=== PATIENT | male | born 1970 | race Caucasian/White ===

== ENCOUNTER → 2017-02-22 | Outpatient (CLI) | payer BC ==
--- NOTE | 2017-02-22 20:33 | CONS ---
DATE OF CONSULTATION: 02/22/2017 REASON FOR CONSULTATION: Sleep apnea. This is a 46-year-old male patient coming in today accompanied by his due to concerns of sleep apnea. The tells me the patient snores loud, stops breathing on multiple occasions. He has been having very much sleepiness and fatigue during the day. He has worked at the [employer] in [place] and he commutes between the [facility] and [place]. Sometimes on his way back, he gets tired and he cannot continue, so he pulls over and falls asleep. He goes to bed around 10:00 p.m., wakes up at 4:00 a.m. in the morning. It takes him a few minutes to fall sleep. He seems quite affected by sleepiness. This problem has been going on for quite some time. No recent weight gain or weight loss. No history of any motor vehicle accident because of feeling sleepy or tired. No restlessness in the lower extremities. He has ticks for which he takes clonazepam on a p.r.n. basis. PAST MEDICAL HISTORY: 1. Ticks. 2. Hypertension. 3. Hyperlipidemia. 4. Renal cell carcinoma with a previous nephrectomy. 5. Transient ischemic attack. Surgical history includes a left radical nephrectomy, lithotripsy and vasectomy. ALLERGIES: PHENOTHIAZINE. Outpatient medication list includes: 1. Clonazepam 0.5 daily. 2. Dicyclomine 20 mg p.o. daily. 3. Amlodipine 5 mg p.o. daily. 4. Lipitor 20 mg p.o. daily. SOCIAL HISTORY: Positive smoker, no alcoholism. No alcohol or history of IV drugs. FAMILY HISTORY: No history of any obstructive sleep apnea. REVIEW OF SYSTEMS: Twelve-point review of systems was done. The patient is a nose breather. Known to have A. fib, no history of heart failure. No sleepwalking or sleeptalking. No other parasomnias noted. He wakes up occasionally in the middle of night gasping for air. He has occasional heartburn at nighttime. He has also symptoms of nocturia. Otherwise positive findings were all mentioned above in the history of present illness. His current vitals: His blood pressure is 130/76, pulse 86, respirations 16, temperature 98.0, sats are 95% on room air. Weight is 191. Height 5 feet 9 inches. The neck size 15-1/2 inches. BMI is 27.8. GENERAL APPEARANCE: Calm, comfortable. HEENT: Short neck, crowding posterior pharynx. Mallampati class IV. No goiter or neck masses. LUNGS: Clear to auscultation. HEART: Sounds are regular rate and rhythm. Normal S1, S2. No murmurs. ABDOMEN: Soft, nontender. No organomegaly. EXTREMITIES: No edema. No cyanosis or clubbing. IMPRESSION: 1. Obstructive sleep apnea clinically suspected, needs further investigation. 2. Transient ischemic attack, history of. 3. Renal cell carcinoma history of. 4. Hypertensive. 5. Hyperlipidemia. 6. Ticks maintained on clonazepam. PLAN: Proceed with a screening polysomnogram. Clinical suspicion is high regarding obstructive sleep apnea. Will follow. Copy to Dr. Taveras.
== END ==
LOC: SLEEP 15:33
PROVIDERS: ATTEND Internal Medicine Critical Care Medicine
DX: G47.33 Obstructive sleep apnea (adult) (pediatric) (principal); I10 Essential (primary) hypertension; E78.5 Hyperlipidemia, unspecified; G45.9 Transient cerebral ischemic attack, unspecified; F17.200 Nicotine dependence, unspecified, uncomplicated; Z79.899 Other long term (current) drug therapy
CPT/HCPCS: 99211

== ENCOUNTER → 2017-08-09 | Outpatient (CLI) | payer BC ==
--- NOTE | 2017-08-09 16:07 | PN ---
PROGRESS NOTE A 47-year-old male patient diagnosed having obstructive sleep apnea an AHI of 8.9. Based on his excessive hypersomnia and sleep fragmentation, the patient was given CPAP therapy and today he is coming in for a compliancy check. The patient is having excellent clinical response to the CPAP therapy. His sleep quality is improved significantly. The tells me that he is not snoring at all. He sleeping much better. He is waking up refreshed and alert during the day. He is currently using a CPAP pressure of 9 cm of water. He is using AirFit P10 nose pillows. He is able to drive back and forth to [place] without having to fall asleep. His [place] score is down to 1 and he has no specific complaints. PHYSICAL EXAMINATION: BP is 137/76, pulse 84, respirations 16, temp 98.2. Weight is 189 and saturation 96% on room air. GENERAL APPEARANCE: Calm, comfortable. Head is atraumatic, normocephalic. NECK: Supple. There is no JVD. No goiter or neck masses. LUNGS: Clear to auscultation. HEART: Sounds regular rate and rhythm. Normal S1, S2. No S3. No murmurs. ABDOMEN: Soft, nontender. No organomegaly. EXTREMITIES: No edema. No cyanosis or clubbing. NEUROLOGIC: Alert and oriented times three. No focal neurological deficits. Psychiatric: No anxiety or panic or depression. IMPRESSION: Symptomatic obstructive sleep apnea with an AHI of 8.9. Patient is receiving successful CPAP therapy pressure of 9. PLAN: 1. Patient is having excellent clinical response. 2. Continue CPAP therapy at the same level of pressure. 3. Add EPR of 3. 4. Drop humidity level down to 3 and keep the temperature of the tubing at 81 degrees Fahrenheit. 5. Encourage weight loss. 6. Implement good sleep hygiene measures. 7. See me back in a year's time if needed. 8. The patient also expressed needs to be evaluated for pulmonary disorder knowing that he has a chronic smoking history. I asked him to come [facility] if this has been approved by his primary care physician. MMODL / IJN: [id number] /
== END ==
LOC: SLEEP 14:11
PROVIDERS: ATTEND Internal Medicine Critical Care Medicine
DX: G47.33 Obstructive sleep apnea (adult) (pediatric) (principal)

== ENCOUNTER → 2017-11-18 | Outpatient (CLI) | payer BC ==
--- NOTE | 2017-11-18 15:13 | XR ---
Right wrist HISTORY: Pain and numbness 3 views of the right wrist Bone mineralization, joint spaces and alignment are maintained. No fracture or dislocation. IMPRESSION: No significant abnormalities evident in the right wrist.
--- NOTE | 2017-11-18 15:14 | XR ---
Right elbow HISTORY: Pain and numbness 3 views of the right elbow Bone mineralization, joint spaces and alignment are maintained. No evident joint effusion. No fractur e or dislocation. IMPRESSION: Normal right elbow.
--- NOTE | 2017-11-18 15:16 | XR ---
Lumbosacral spine HISTORY: Pain and numbness right leg 5 views of the lumbosacral spine Bone mineralization is reduced. Alignment is maintained. Lumbar vertebral body height is normal. Ther e is multilevel spondylosis. There is loss of disc height at L4-5, L2-3 and L1-2. Sclerosis present i n the posterior elements of the lower lumbar spine. There is no spondylolysis. impression: Osteopenia, degenerative disc disease and facet arthropathy. Lumbar MRI may be of benefit .
== END | disposition home or self-care (01) ==
LOC: RADXRYALE 12:40
PROVIDERS: ATTEND Internal Medicine
DX: M51.36 Other intervertebral disc degeneration, lumbar region (principal); M46.96 Unspecified inflammatory spondylopathy, lumbar region; M85.88 Other specified disorders of bone density and structure, other site; M25.531 Pain in right wrist; M25.521 Pain in right elbow
CPT/HCPCS: 72110

== ENCOUNTER → 2018-01-16 | Outpatient (CLI) | payer BC, OTHER ==
--- NOTE | 2018-01-16 14:54 | NM ---
EXAMINATION TYPE: NM bone scan whole body DATE OF EXAM: 01/16/2018 COMPARISON: Plain film from outside institution 01/10/[address] abdomen pelvis dated 04/21/2000 HISTORY: Low back pain Delayed whole-body scanning was performed following the injection of 19.7 mCi Tc 99m MDP. Images acq uired 4 hours post injection. FINDINGS: There is uptake in the first digit of the right foot which is likely degenerative. Small focus of act ivity present over the inferior pubic ramus on the left is noted which could possibly be representati ve of urine contamination. Absence of left renal activity noted incidentally compatible with prior ne phrectomy. No other abnormal increased or decreased radiopharmaceutical uptake evident. IMPRESSION: Status post left nephrectomy. Degenerative changes first digit right foot. Findings the pelvis as satish cribed.
== END | disposition home or self-care (01) ==
LOC: RADNMMAIN 09:26
PROVIDERS: ATTEND Physical Medicine & Rehabilitation
DX: R93.7 Abnormal findings on diagnostic imaging of other parts of musculoskeletal system (principal); Z90.5 Acquired absence of kidney
CPT/HCPCS: 78306; A9503

== ENCOUNTER → 2022-03-15 | Outpatient (CLI) | payer OTHER ==
--- NOTE | 2022-03-16 01:44 | MR ---
EXAMINATION TYPE: MR chela/kleber wo con DATE OF EXAM: 03/15/2022 COMPARISON: None HISTORY: Mid back pain and low back pain towards right side for 1 month Multiplanar multiecho imaging of the thoracic and lumbar spine without contrast. Thoracic spine The thoracic vertebrae have normal alignment. Disc spaces are fairly normal. There is posterior disc herniation at C6-7 into the spinal canal in the midline. There is developmentally large spinal canal and no spinal stenosis. The canal measures 9 mm at C6-7. At T7-8 there is a posterior disc herniation and elevation of the posterior longitudinal ligament. Di sc herniation is in the midline and there is some impingement on the thecal sac. There is slight effa cement of the thoracic spinal cord. At T8-9 there is also a small posterior disc bulge slightly impin ging on the spinal canal. Thoracic cord shows no edema. No paraspinal mass. No thoracic compression f racture. IMPRESSION: Posterior T7-8 thoracic disc herniation with some effacement of the thoracic spinal cord but no edema . Posterior C6-7 cervical disc herniation but no spinal stenosis. No fracture. Lumbar spine. The lumbar vertebrae have fairly normal alignment. There is posterior fusion surgery at L4-5. The dis c spaces are fairly normal. No compression fracture. No lumbar spinal stenosis. There is no lumbar pa raspinal mass. No evidence of focal bone destruction. The sacroiliac joints appear normal. IMPRESSION: Posterior fusion surgery at L4-5. No spinal stenosis or lumbar disc herniation. No fracture. No compl icating process.
== END | disposition home or self-care (01) ==
LOC: RADMRIMAIN 20:25
PROVIDERS: ATTEND Internal Medicine
DX: M51.24 Other intervertebral disc displacement, thoracic region (principal); Z98.1 Arthrodesis status
CPT/HCPCS: 72146; 72148

== ENCOUNTER → 2022-04-29 | Outpatient (CLI) | payer OTHER ==
[2022-04-29 13:58] VITALS: BP 135/72; PULSE 96; RESP 18; TEMP 98.5
--- NOTE | 2022-04-29 14:01 | P.PAINPG ---
PQRS Measure Charge Sheet Comment: HISTORY OF PRESENT ILLNESS: 52 yr old male as a referral from [facility] presents today w severe and chronic mid back pain secondary to DDD, disc bulges and facet arthropathy for evaluation. Pt states his pain level is currently at 7/10 in intensity, constant, localized in the lower lumbar spine/ tailbone region w radiation of throbbing pain towards the buttocks. Pain is provoked with sitting for periods of 30 min or more, stating "it ruins my evenings." Pain is palliated w medication (Tylenol OTC), topical, heat, PT 3 yrs ago and will restart PT this month, home exercise regimen, massage integrated w PT in the past, TENS unit use, standing, repositioning and rest. PMH: COPD/Asthma, HTN, Hyperlipidemia PSH: L4-L5 Fusion SH: 30 pack/yr tobacco use, No ETOH abuse, No illicit drug use FH: Non contributory All: NKDA Meds: See list REVIEW OF ORGAN SYSTEMS: CONSTITUTIONAL: No fevers or chills. No recent weight loss. NEUROLOGICAL: + numbness and tingling along the distal extremities. No seizure disorders or headaches. MUSCULOSKELETAL: + pain PSYCHIATRIC: Denies current depression or suicidal thoughts. Physical Examinations : Constitutional : Cooperative , not in acute distress . Neurologic : Cranial nerve II to XII intact. No focal neurological deficits. Psychiatric : alert & oriented x 3. Matching mood & appropriate affect. Judgment & insight intact. Musculoskeletal : Cervical Spine Motor strength in the deltoid and biceps: Normal right side. Normal Left side Motor strength biceps and the wrist extensors: Normal right side . Normal left side Motor strength in the triceps muscle: Normal right side. Normal left side Deep tendon reflexes: Normal at the biceps. Normal at Brachioradialis. Normal at triceps Vertebral body tenderness to deep palpation over L5, S1 Cervical facet loading test: positive bilaterally Spurling test: positive bilaterally Neck distraction test: positive bilaterally Mine sign: positive bilaterally Lumbar spine Motor strength lower extremities ,thigh and legs 5/5 Right side , 5/5 Left side Deep tendon reflexes : Normal Knee Jerk. Normal Ankle Jerk Vertebral body tenderness over Lumbar facet Loading Test: positive Right / positive Left Range of motion of the lumbar spine Flexion 30 degrees, extension 10 degrees Straight Leg Raise test: Left/ Right positive at degree Joy test: positive right / positive left. Severe tenderness over the Sacroiliac joint on the Right / Left sides Gaenslen test: positive bilaterally Seated flexion test: positive bilaterally. Sacral spine : Severe tenderness over the Sacroiliac joint: right side / left side Range of motion: Flexion of the lumbar spine <60 degrees Range of motion: Extension of the lumbar spine <20 degrees Gaenslen's Test positive Joselito's Test positive Joy test: positive right side / left side Thigh Thrust Test Sacral Thrust Test Imaging: MRI without contrast of the thoracolumbar spine from 03/15/22 reviewed. Assessment/ Plan : Lumbar DDD, Lumbar facet arthropathy Recommendation of Caudal ZEE w lysis. May need a series of treatments, up to every 4-6 mo, for optimal treatment of pain. Risks, benefits of procedure discussed and patient verbalized understanding. Admits to aspirin or anti- coagulant use and denies a medical history of diabetes. Protocol for discontinuation/ continuation of medications astrid procedure discussed. All questions answered. I have spent greater than 30 minutes on patient care today. Dr Quiroz was available by phone for the evaluation of this patient. The time was used to review the medical records including relevant urine studies and Prescription history (MAPs), review of the available imaging, evaluation and examination of the patient, coordination of care with the medical staff and if applicable referring physicians, as well as creation of the medical record Controlled Substance Measures - Controlled Substance Measures Is patient prescribed a controlled substance at discharge?: No
== END ==
LOC: PNWHC3 12:59
PROVIDERS: ATTEND Specialist
DX: M51.36 Other intervertebral disc degeneration, lumbar region (principal); M47.816 Spondylosis without myelopathy or radiculopathy, lumbar region; M51.24 Other intervertebral disc displacement, thoracic region
CPT/HCPCS: 99211

== ENCOUNTER 2022-06-08 08:30 | Day surgery (SDC) | payer OTHER ==
[~2022-06-08 08:30] MED LIST: LACTATED RINGERS 1,000 ML IV SCH
[2022-06-08 10:09] VITALS: RESP 16; TEMP 97.7
[2022-06-08] MEDS ORDERED: methylPREDNISolone ACETATE 80 MG/ML 1 ML VIAL ONE (10:42)
[2022-06-08] MEDS ORDERED: IOPAMIDOL M200 10 ML VIAL ONE (10:42)
[2022-06-08] MEDS ORDERED: MIDAZOLAM 2 MG/2 ML VIAL ONE (10:42)
[2022-06-08] MEDS ORDERED: fentaNYL (PF) 50 MCG/ML 2 ML AMP ONE (10:42)
--- NOTE | 2022-06-08 11:07 | P.PCN ---
Date of Procedure: 06/08/22 Description of Procedure: PREOP DIAGNOSIS: Lumbar postlaminectomy syndrome, and lumbar radiculopathy POSTOP DIAGNOSIS: Lumbar postlaminectomy syndrome, and lumbar radiculopathy PROCEDURE: Caudal epidural steroid injection with epidurolysis and epidurogram under fluoroscopic guidance ANESTHESIA: Local with 1% lidocaine; IV sedation with Versed4 mg and fentanyl 100 g -as patient had a history of anxiety induced TIcs Sedation supervision start time : 1040 sedation Supervision end time: 08 05 Surgeon: Joyce Kern EBL: None Specimens removed: None Fluoroscopic image: saved to electronic medical records PROCEDURE INDICATION: The patient with post-laminectomy syndrome with low back pain and radiculopathy radiating down in both legs, here for a caudal epidural steroid injection with epidurolysis. PROCEDURE DESCRIPTION: The patient was seen and identified in the preoperative area. Risks, benefits, complications, and alternatives were discussed with the patient. The patient agreed to proceed with the procedure and signed the consent. IV was started, and vital signs were stable. Patient was taken to the OR and time out was completed. The patient was placed in the prone position on procedure table and a pillow was placed under the abdomen to reduce lumbar lordosis. The lumbosacral area was prepped with ChloraPrep 2 and draped in the usual sterile fashion. Vital signs were closely monitored during the procedure. Lateral view and the anterior-posterior plates of the sacrum were identified with infiltration of the area overlying the sacral hiatus with 1% lidocaine .A 17 gauge RK epidural needle was used to advance through the sacral hiatus into the caudal epidural space. Isovue contrast 2 mL was injected and the position of the needle was verified to be in the midline. A Epimed catheter was introduced into the epidural space and was advanced towards the L5-S1 interspace under direct fluoroscopic guidance. Multiple passes were made with the catheter for lysis of epidural adhesions. Depo-Medrol 80mg with 10 ml of preservative free normal saline was injected slowly. Additional spread was seen to L4 under fluoroscopy. The needle and the catheter were withdrawn intact. EPIDUROGRAM: Isovue dye 1 ml was injected with spread of the dye into the caudal epidural space and with spread cutoff at S1 prior to epidurolysis. Post epidurolysis dye 1 ml was injected and spread was seen to L4. COMPLICATIONS: None. DISPOSITION / PLANS: The patient was placed in a supine position and transferred to the recovery area in a stable condition for observation and was discharged from the recovery room after meeting discharge criteria. Home discharge instructions given to the patient by the staff. The patient was reexamined prior to discharge. The patient will schedule a follow up in the clinic in 4 weeks.
[2022-06-08] MEDS ORDERED: IV FLUID CONTINUATION 1,000 ML IV ONE (11:08)
[2022-06-08 11:10] VITALS: PULSE 57
[2022-06-08 11:24] VITALS: BP 111/71
--- NOTE | 2022-06-08 11:36 | FL ---
EXAMINATION TYPE: FL guided pain mgmt statistic DATE OF EXAM: 06/08/2022 CLINICAL HISTORY: Low back and sacral pain. TECHNIQUE: Fluoroscopy. COMPARISON: None. FINDINGS: Fluoroscopic guidance was provided during pain relief procedure performed by Dr. Tejada. A total of 18 seconds of fluoroscopic time was utilized during the procedure and 3 spot images are a cquired. Images acquired shows needle localization from posterior-inferior approach to level of the sacrum and lower lumbar spine. Partial visualization of surgical change in the lower lumbar spine not ed. IMPRESSION: As Above.
== END 2022-06-08 11:43 | disposition home or self-care (01) ==
LOC: ORPAIN 08:30
DX: M96.1 Postlaminectomy syndrome, not elsewhere classified (principal); M54.16 Radiculopathy, lumbar region; I10 Essential (primary) hypertension; E78.00 Pure hypercholesterolemia, unspecified; Z86.73 Personal history of transient ischemic attack (TIA), and cerebral infarction without residual deficits; Z85.528 Personal history of other malignant neoplasm of kidney; G47.33 Obstructive sleep apnea (adult) (pediatric); J45.909 Unspecified asthma, uncomplicated; Z88.5 Allergy status to narcotic agent; F17.210 Nicotine dependence, cigarettes, uncomplicated
CPT/HCPCS: 62321; 62264; J2250; J1040; J3010; Q9966; C1894; 99152

== ENCOUNTER → 2022-07-01 | Outpatient (CLI) | payer OTHER ==
[2022-07-01 13:42] VITALS: BP 157/77; PULSE 74; RESP 18; TEMP 98.4
--- NOTE | 2022-07-01 13:44 | P.PAINPG ---
PQRS Measure Charge Sheet Comment: A 52 yr old male with a history of severe and chronic low back pain secondary to lumbar degenerative disc diseases and lumbar spondylosis with facet arthropathy without myelopathy presents today for evaluation s/p Caudal ZEE w lysis. Pt states he experienced 75% pain relief x 3 wks s/p procedure. Pain level is currently at 2/10 in intensity, constant, localized in lower lumbar spine where it meets the tailbone, dull/ achy in character w shooting towards the R hip. Pain is provoked as high as 4/10 by walking up inclines, bending/lifting. Pain is alleviated with PT completed 4 wks in May 2022, heat, meds (Tylenol, Ibuprofen 800mg), topicals, lay supine, use reclining chair w heat, repositioning and rest. Interventional pain procedures completed include Caudal ZEE w Lysis. Patient is currently on Patient denies any side effects of the medication(s), denies excessive drowsiness or sleepiness, denies suicidal ideation and reports that the current pain medication is helping to control the pain and improve activities of daily living. Patient denies any motor or sensory deficits. Patient denies any fever or night sweats, denies any change in the bowel movements or urination. Physical Examination: -Constitutional: Cooperative. Not in acute distress . - Neurologic: Cranial nerve II to XII intact. No focal neurological deficits. - Psychatric: Alert & oriented x 3. Matching mood & appropriate affect. Judgment and insight intact. - Musculoskeletal: Cervical spine: Muscle bulk/ tone/ strength in the bilateral upper extremities normal Vertebral body tenderness to palpation over Spurling test positive Distraction test positive Facet loading test positive Thoracic spine Muscle bulk / tone/ strength in the bilateral paraspinal muscles normal Vertebral body tender to palpation over Facet loading test positive Lumbar spine: Motor bulk/ tone/ strength lower extremities , thigh and legs : 5/5 Deep tendon reflexes : Normal Knee Jerk. Normal Ankle Jerk . Vertebral body tenderness to palpation over Lumbar Facet Loading Test positive Straight Leg Raise: positive at 30 degrees right side/ left side Gaenslen's Test positive Sacral spine : Severe tenderness over the Sacroiliac joint: right side / left side Range of motion: Flexion of the lumbar spine <60 degrees Range of motion: Extension of the lumbar spine <20 degrees Gaenslen's Test positive Joselito's Test positive Joy test: positive right side / left side Thigh Thrust Test Sacral Thrust Test Assessment and plan: Chronic low back pain secondary to lumbar degenerative disc disease , lumbar spondylosis with facet arthropathy without myelopathy Pt tolerated procedure and is having substantial pain relief w procedure. He will manage residual pain w home pain mgmt modifications and may return to our clinic on an as needed basis. Risks, benefits of procedure discussed and pt verbalized understanding. Denies anticoagulant use or medical history of diabetes. All patient questions answered r I have spent less than 30 minutes on patient care today. Dr Quiroz was available by phone for the evaluation of this patient. The time was used to review the medical records including relevant urine studies and Prescription history (MAPs), review of the available imaging, evaluation and examination of the patient, coordination of care with the medical staff and if applicable referring physicians, as well as creation of the medical record PQRS Narrative: Hx Alcohol Use (MH) Yes: SOCIALY Home Medications: Ambulatory Orders Aspirin [Adult Low Dose Aspirin EC] 81 mg PO DAILY 06/04/22 Atorvastatin Calcium 1 tab PO HS 06/04/22 Carbidopa-Levodopa 10-100 mg [Sinemet 10-100 mg] 1 tab PO BID 06/04/22 Cyclobenzaprine [Flexeril] 1 tab PO TID PRN 06/04/22 Ibuprofen [Motrin] 800 mg PO BID 06/04/22 Metoprolol Succinate (ER) [Toprol XL] 1 tab PO DAILY 06/04/22 Pyridoxine HCl (Vitamin B6) [B-6] 50 mg PO DAILY 06/04/22 SUMAtriptan succinate 50 mg PO Q2HR PRN 06/04/22 Varenicline [Chantix Continuing Pack] 1 mg PO BID 06/04/22 amLODIPine [Norvasc] 1 tab PO DAILY 06/04/22 clonazePAM 2 mg PO BID 06/04/22 dilTIAZem HCL [dilTIAZem [id number] ER (CD)] 1 tab PO DAILY 06/04/22 Controlled Substance Measures - Controlled Substance Measures Is patient prescribed a controlled substance at discharge?: No
== END ==
LOC: PNWHC3 13:09
PROVIDERS: ATTEND Specialist
DX: M47.816 Spondylosis without myelopathy or radiculopathy, lumbar region (principal); M51.36 Other intervertebral disc degeneration, lumbar region; G89.29 Other chronic pain; Z91.09 Other allergy status, other than to drugs and biological substances; Z91.048 Other nonmedicinal substance allergy status
CPT/HCPCS: 99211